=== PATIENT | female | born 1955 | race Two or more races ===

== ENCOUNTER 2016-12-03 22:14 | Emergency (ER) | payer MEDICAID ==
[~2016-12-03] VITALS: Ht 157.5 cm; Wt 68.0 kg
[2016-12-03 22:31] VITALS: BP 153/76
== END 2016-12-03 22:56 | disposition home or self-care (01) ==
LOC: ER 22:19
DX: Z53.21 Procedure and treatment not carried out due to patient leaving prior to being seen by health care provider (principal)
CPT/HCPCS: A4606; Z7610

== ENCOUNTER 2018-12-15 23:37 | Emergency (ER) | payer MEDICARE, MEDICAID ==
[~2018-12-15] VITALS: Ht 157.5 cm; Wt 72.6 kg
[2018-12-16] MEDS ORDERED: predniSONE 20 MG TABLET ONE (00:06)
[2018-12-16] MEDS: predniSONE 20 MG TABLET PO ONE (00:10)
--- NOTE | 2018-12-16 00:10 | NUR ---
BBDAUGHTER FROM HOME C/C COUGH W/ CHEST PRESSURE, SOB X YESTERDAY, HX ASTHMA, USED INHALER W/ NO IMPROVEMENTS. PT IS AAOX4. RR EVEN AND UNLABORED. NO S/S OF ACUTE DISTRESS NOTED. PT PLACED ON MONITOR AND POX. PT SAFETY AND COMFORT MEASURES IN PLACE.
--- NOTE | 2018-12-16 00:12 | NUR ---
global technical writer bedside for chest x-ray
[2018-12-16] MEDS: ALBUTEROL FS 2.5 MG/0.5 ML VIAL.NEB NEB ONE ×3 (00:23)
[2018-12-16] MEDS: IPRATROPIUM NEB FS 0.5 MG/2.5 ML AMPUL.NEB NEB ONE ×3 (00:23)
[2018-12-16] MEDS ORDERED: IPRATROPIUM NEB FS 0.5 MG/2.5 ML AMPUL.NEB ONE (00:24)
[2018-12-16] MEDS ORDERED: ALBUTEROL FS 2.5 MG/0.5 ML VIAL.NEB ONE (00:24)
--- NOTE | 2018-12-16 00:28 | NUR ---
RT SADAF BEDSIDE FOR BREATHING TREATMENT
--- NOTE | 2018-12-16 01:15 | NUR ---
RT BEDSIDE WITH PATIENT
--- NOTE | 2018-12-16 03:03 | NUR ---
Patient discharged to home in stable condition. Written and verbal after care instructions given. Patient verbalizes understanding of instruction. no s/s of acute distress upon discharge
[2018-12-16 03:05] VITALS: BP 131/63
== END 2018-12-16 03:07 | disposition home or self-care (01) ==
LOC: ER 23:41
DX: R05 Cough (principal); I10 Essential (primary) hypertension; J45.909 Unspecified asthma, uncomplicated; Z98.890 Other specified postprocedural states
CPT/HCPCS: 71045; 93005; 99283; J7512

== ENCOUNTER 2018-12-16 23:51 | Emergency (ER) | payer MEDICARE, MEDICAID ==
[~2018-12-16] VITALS: Ht 157.5 cm; Wt 68.9 kg
--- NOTE | 2018-12-17 | NUR ---
PT C/C Cough w/ clear sputum, wheezing SINCE yesterday, using inhaler for asthma w/ no relief, headache w/ midchest pain when coughing, recent travel to [place]. PT AOX4. NAD NOTED. RESP EVEN AND UNLABORED. DAUGHTER AT BEDSIDE.
--- NOTE | 2018-12-17 00:25 | NUR ---
BLOOD DRAWN AND GIVEN TO LAB
[2018-12-17] MEDS ORDERED: IPRATROPIUM NEB FS 0.5 MG/2.5 ML AMPUL.NEB NEB ONE ×3 (00:30)
[2018-12-17] MEDS ORDERED: ALBUTEROL FS 2.5 MG/0.5 ML VIAL.NEB NEB ONE ×3 (00:30)
[2018-12-17] MEDS ORDERED: METOCLOPRAMIDE HCL 10 MG/2 ML VIAL IV ONE (00:30)
[2018-12-17] MEDS ORDERED: IV NS 0.9% 1,000 ML BAG IV ONE (00:30)
[2018-12-17 00:34] LABS: BASOPHILS % (AUTO) 0.4 % (0.0-2.0); HEMATOCRIT 38 % (33-45); HEMOGLOBIN 12.8 g/dL (11.5-14.8); LYMPHOCYTES # (AUTO) 1.1 /CMM (0.8-4.8); LYMPHOCYTES % (AUTO) 9.3 % (20.0-44.0); MEAN CORPUSCULAR HGB CONC 34 g/dl (31.0-36.0); MEAN CORPUSCULAR VOLUME 82 fL (82-100); MONOCYTES # (AUTO) 0.7 /CMM (0.1-1.30); MONOCYTES % (AUTO) 6.1 % (2.0-12.0); NEUTROPHILS # (AUTO) 10.1 /CMM (1.8-8.9); NEUTROPHILS % (AUTO) 84.2 % (43.0-81.0); PLATELET COUNT (AUTO) 403 /CMM (150-450); RED BLOOD CELL COUNT(AUTO) 4.66 MIL/uL (4.0-5.2); WHITE BLOOD COUNT (AUTO) 11.9 K/uL (4.3-11.0)
--- NOTE | 2018-12-17 00:34 | NUR ---
TECH AT BEDSIDE FOR EKG
[2018-12-17] MEDS ORDERED: METOCLOPRAMIDE HCL 10 MG/2 ML VIAL ONE (00:38)
[2018-12-17] MEDS ORDERED: ALBUTEROL FS 2.5 MG/0.5 ML VIAL.NEB ONE (00:39)
[2018-12-17] MEDS ORDERED: IPRATROPIUM NEB FS 0.5 MG/2.5 ML AMPUL.NEB ONE (00:39)
[2018-12-17 00:43] LABS: CALCIUM, SERUM 8.7 mg/dL (8.5-10.1); CREATININE 0.8 mg/dL (0.6-1.3)
[2018-12-17 01:47] VITALS: BP 128/59
--- NOTE | 2018-12-17 01:59 | NUR ---
IV removed. Catheter intact and site benign. Pressure and 4x4 applied to site. No bleeding noted.Patient discharged to home in stable condition. Written and verbal after care instructions given. Patient verbalizes understanding of instruction. PT AMBULATORY WITH STEADY GAIT.
== END 2018-12-17 02:03 | disposition home or self-care (01) ==
LOC: ER 23:56
DX: J18.9 Pneumonia, unspecified organism (principal); I10 Essential (primary) hypertension; J45.909 Unspecified asthma, uncomplicated; Z98.890 Other specified postprocedural states
CPT/HCPCS: 36415; 80048; 83605; 83880; 85025; 87040 ×2; 93005; 94644; 96374; 99285; J2765; J7030